=== PATIENT | female | born 1940 | race Caucasian/White ===

== ENCOUNTER → 2022-09-19 | Outpatient (CLI) | payer MEDICARE | END | disposition home or self-care (01) | DX: G45.9 Transient cerebral ischemic attack, unspecified (principal) ==

== ENCOUNTER → 2025-07-01 | Outpatient (CLI) | payer OTHER ==
[2025-07-01 11:01] LABS: Source, Urine Clean Catch
[2025-07-01 13:46] LABS: Bilirubin, Urine Neg (Neg); Glucose Qualitative, Urine Neg (Neg); Ketones, Urine Neg (Neg); Leukocyte Esterase, Urine 3+ (Neg); Protein, Urine 1+ (Neg); Specific Gravity, Urine 1.010 (1.003-1.022); Urobilinogen, Urine NORM (Normal)
[2025-07-01 13:53] LABS: Color, Urine Pale Yellow (P-Yellow)
[2025-07-01 13:56] LABS: White Blood Cells, Urine 25-50 /hpf (0-5)
== END | disposition home or self-care (01) ==
LOC: LAB SHORT 10:58 → LAB 10:58
PROVIDERS: Obstetrics & Gynecology
DX: R30.0 Dysuria (principal)
CPT/HCPCS: 81001; 87077; 87086; 87186